=== PATIENT | female | born 2000 | race Two or more races ===

== ENCOUNTER → 2025-01-13 | Emergency (ER) | payer BC ==
[~2025-01-13] VITALS: Ht 170.2 cm; Wt 57.6 kg
[~2025-01-13] MED LIST: CEFTRIAXONE SODIUM 1,000 MG VIAL IM ONE; CEFTRIAXONE SODIUM 1,000 MG VIAL ONE; DEXAMETHASONE SODIUM PHOSPHATE 4 MG/ML VIAL IM ONE; DEXAMETHASONE SODIUM PHOSPHATE 4 MG/ML VIAL ONE
[2025-01-13 14:30] VITALS: BP 114/78; O2SAT 98
== END | disposition home or self-care (01) ==
LOC: ER 11:28
DX: H66.91 Otitis media, unspecified, right ear (principal)